=== PATIENT | male | born 1960 | race Caucasian/White ===

== ENCOUNTER 2018-11-14 04:30 | Inpatient (IN) | payer OTHER ==
[~2018-11-14] VITALS: Ht 165.1 cm; Wt 68.0 kg
[2018-11-14 04:35] VITALS: BP 113/66
--- NOTE | 2018-11-14 04:37 | NUR ---
FIRST CONTACT WITH PATIENT BIBA FOR ETOH IN PUBLIC. PATIENT WAS FOUND, OUTSIDE A STRANGERS HOME. PATIENT APPARENTLY RANG THE DOOR CACERES AND REQUESTED FOR HELP. PATIENT GCS 15, THOUGH SLOW TO RESPOND. PATIENT DOES STATE HE DRANK ETOH TODAY, DENIES ANY SI/HI. PATIENT STATES HX OF LIVER CIRRHOSIS. IV EST BY EMS 16G TO R UPPER ARM, C/D/P. PATIENT DENIES ANY N/V/D, NO SOB/CP AT THIS TIME. PATIENT HR 82 BPM ON CM, NO ECTOPY NOTED. PATIENT BREATHING IS EVEN AND UNLABORED, EQUAL RISE AND FALL OF CHEST. BED IN LOWEST POSITION SIDE RAILS UP X 2 FOR SAFETY, NO ACUTE DISTRESS NOTED, WILL CONTINUE TO MONITOR
[2018-11-14] MEDS ORDERED: MULTIVITAMIN-12 10 ML in NACL 0.9% 1,000 ML IV ONE (04:53)
--- NOTE | 2018-11-14 04:53 | NUR ---
DR. DIMAS BEDSIDE EVALUATING PT
[2018-11-14] MEDS ORDERED: FOLIC ACID 5 MG/ML SYR IM ONE (04:55)
[2018-11-14] MEDS ORDERED: MAG SULF 2000 MG/WATER PREMIX 50 ML IV ONE (04:55)
[2018-11-14] MEDS ORDERED: THIAMINE 200 MG/2 ML VIAL IM ONE (04:55)
[2018-11-14] MEDS ORDERED: MULTIVITAMIN-12 10 ML VIAL IV ONE (05:11)
--- NOTE | 2018-11-14 06:11 | NUR ---
PT TAKEN TO CT [facility]IA [facility]
[2018-11-14 06:28] LABS: ALBUMIN 2.9 g/dL (3.4-5.0); ANION GAP 10.9 (8-16); CARBON DIOXIDE 24.3 mmol/L (21-32); CREATININE 1.1 mg/dL (0.7-1.3); POTASSIUM 3.2 mmol/L (3.5-5.1)
--- NOTE | 2018-11-14 06:29 | NUR ---
PT RETURNED FROM [facility]IA [facility]
--- NOTE | 2018-11-14 06:39 | NUR ---
PATIENT CURRENTLY RESTING IN [facility] IN POSITION OF COMFORT. PATIENT AROUSABLE VIA TOUCH. PATIENT GCS 15, SLOW TO RESPOND AND DROWSY. PATIENT BREATHING IS EVEN AND UNLABORED, EQUAL RISE AND FALL OF CHEST. PATIENT UPDATED WITH PLAN OF CARE, NO ACUTE DISTRESS NOTED, WILL CONTINUE TO MONITOR
--- NOTE | 2018-11-14 07:13 | NUR ---
RECEIVED REPORT FROM SAIDA WING FOR TRANSFER OF CARE.
[2018-11-14 07:15] LABS: TOTAL BILIRUBIN 3.6 mg/dL (0.0-1.0)
[2018-11-14 07:17] LABS: BASOPHILS % (AUTO) 0.8 % (0.0-2.0); EOSINOPHILS # (AUTO) 0.2 K/uL (0-0.4); EOSINOPHILS % (AUTO) 5.3 % (0.0-4.0); HEMATOCRIT 28.2 % (36-52); LYMPHOCYTES # (AUTO) 0.5 K/uL (2.0-11.5); LYMPHOCYTES % (AUTO) 15.6 % (20.5-51.1); MEAN CORPUSCULAR HEMOGLOBIN 32 pg (27-31); MEAN CORPUSCULAR HGB CONC 35 g/dL (33-37); MEAN CORPUSCULAR VOLUME 89.4 fL (80-94); MONOCYTES # (AUTO) 0.4 K/uL (0.8-1.0); MONOCYTES % (AUTO) 13.8 % (1.7-9.3); NEUTROPHILS # (AUTO) 1.9 K/uL (1.8-7.7); NEUTROPHILS % (AUTO) 64.5 % (42.2-75.2); RED BLOOD CELL COUNT(AUTO) 3.16 MIL/uL (4.20-6.10); RED CELL DISTRIBUTION WIDTH 15.8 % (11.6-13.7)
--- NOTE | 2018-11-14 07:17 | NUR ---
CRITICAL LAB REPORT RECEIVED FROM EVERT FROM LAB. TROPONIN: [id number]. NOTIFIED DR. LIND.
--- NOTE | 2018-11-14 07:30 | NUR ---
PT ASLEEP. EASILY AROUSABLE BY TOUCH. RESPONDS APPROPRIATELY. VSS. NO SIGNS AND SYMPTOMS OF DISTRESS NOTED. WILL CONTINUE TO MONITOR.
[2018-11-14 07:33] LABS: PLATELET COUNT (AUTO) 48 K/uL (140-450)
--- NOTE | 2018-11-14 07:36 | NUR ---
DR LIND AT BEDSIDE FOR PT EVAL
[2018-11-14 07:43] LABS: BILIRUBIN,URINE NEGATIVE (NEGATIVE); BLOOD, URINE 2+ (NEGATIVE); COLOR,URINE YELLOW (YELLOW); LEUKOCYTE ESTERASE ,URINE NEGATIVE (NEGATIVE); NITRITE, URINE NEGATIVE (NEGATIVE); PH,URINE 6.5 (5.0-9.0); UGLUCOSE NEGATIVE (NEGATIVE)
[2018-11-14 07:47] LABS: BARBITURATE, URINE NEG. ng/ml (NEG <=200); BENZODIAZEPINE, URINE NEG. ng/mL (NEG <=200); CANNABINOID, URINE NEG. ng/mL (NEG <=50); COCAINE, URINE NEG. ng/mL (NEG <=300); OPIATE, URINE NEG. ng/mL (NEG <=2000); PHENCYCLIDINE SCREEN,URINE NEG. ng/mL (NEG <=25)
[2018-11-14] MEDS ORDERED: LACTULOSE 20 GM/30 ML UDC PO ONE ×2 (07:50→08:10)
[2018-11-14] MEDS ORDERED: PIPERACILLIN/TAZOBACTAM 3.375 GM in DEXTROSE 5% 50 ML IV ONE ×2 (07:50→08:10)
[2018-11-14] MEDS ORDERED: VANCOMYCIN 1,000 MG in DEXTROSE 5% 250 ML IV ONE ×2 (07:50→08:10)
[2018-11-14] MEDS ORDERED: NACL 0.9% 1,000 ML IV ONE ×2 (07:50→08:10)
[2018-11-14 07:58] LABS: PROTHROMBIN TIME 13.3 secs (10.8-13.4)
[2018-11-14 07:59] LABS: LIPASE 212 U/L (73-393); MAGNESIUM 2.4 mg/dL (1.8-2.4)
[2018-11-14 08:00] LABS: ACETAMINOPHEN < 0.5 ug/ml (10-30); SALICYLATE < 2.8 mg/dL (2.8-20.0)
[2018-11-14 08:04] LABS: RBC,URINE 11-20 (MOD) /HPF (0-5)
[2018-11-14 08:05] LABS: WBC,URINE 0-5 /HPF (0-5)
[2018-11-14 08:06] LABS: APPEARANCE,URINE SLIGHTLY HAZY (CLEAR)
[2018-11-14] MEDS ORDERED: PIPERACILLIN/TAZOBACTAM 3.375 GM VIAL IV ONE (08:26)
[2018-11-14] MEDS ORDERED: VANCOMYCIN 1,000 MG VIAL ONE (08:26)
--- NOTE | 2018-11-14 08:36 | NUR ---
PT ASLEEP. EASILY AROUSABLE BY TOUCH AND VOICE. FULL CLEAR SPEECH. VSS. WILL CONTINUE TO MONITOR.
[2018-11-14 09:12] LABS: ACETONE, SERUM NEGATIVE (NEGATIVE)
--- NOTE | 2018-11-14 09:35 | NUR ---
PT IS MUCH MORE AWAKE AT THIS TIME. VSS. FULL CLEAR SPEECH.
--- NOTE | 2018-11-14 09:45 | NUR ---
RECEIVED REPORT FROM ED NURSE. PT LETHARGIC, AROUSABLE TO NAME, TRANSFERRED TO UNIT VIA GURNEY. PT ABLE TO REPOSITION SELF IN BED. AOX4, REQUIRES REMINDERS. BILATERAL RADIAL PULSES 61, EVEN AND REGULAR. IV ON RT UPPER ARM 16 GA AND RT HAND 18 GA RUNNING IVF PER ORDER, DRESSING CLEAN, DRY AND INTACT. RESPIRATIONS EVEN AND UNLABORED ON RA. ABDOMEN IS SOFT AND DISTENDED, LBM UNABLE TO RECALL. PT IS JAUNDICED, YELLOWING OF THE SKIN AND EYES. SKIN IS INTACT, WARM TO TOUCH. NO EDEMA NOTED TO EXTREMITIES. PT GAVE CONTACT NUMBERS OF SISTER NEERAJ PIÑA AND MARGARETTE . PT VERBALIZED THAT WE ARE ABLE TO SHARED PT INFORMATION WITH SISTERS. GIVEN AND EXPLAINED POC WITH PT, PT VERBALIZED UNDERSTANDING. PT PLACE ON FALL PRECAUTIONS, GIVEN YELLOW GOWN, YELLOW ARM BAND, YELLOW SOCKS, AND POSTED YELLOW SIGN ON DOOR. SAFETY MEASURES IN PLACE, BED ON LOW POSITION, BED ALARMS ON. WILL CONTINUE TO MONITOR.
--- NOTE | 2018-11-14 09:45 | NUR ---
Patient will be admitted to care of Dr Sheridan. Admited to Tele. Will go to room 126 B. Belongings list completed. Report to SAIDA Martinez and SAIDA Fonseca.
--- NOTE | 2018-11-14 10:00 | NUR ---
ATTEMPTED TO CONTACT SISTERS, LINE WAS BUSY. WILL TRY AT A LATER TIME.
--- NOTE | 2018-11-14 11:15 | NUR ---
SECOND ATTEMPT TO CONTACT SISTERS WELL BROTHER MANNY AT BUT LINES WERE BUSY. WILL TRY AGAIN AT A LATER TIME.
--- NOTE | 2018-11-14 11:24 | NUR ---
RECEIVED CALL FROM DR. VALDES. REPORTED LABS, ORDERS GIVEN, NOTED AND CARRIED OUT BY RN.
[2018-11-14] MEDS ORDERED: KCL 20 MEQ/WATER INJ PREMIX 200 ML IV ONE (11:25)
[2018-11-14] MEDS ORDERED: ONDANSETRON 4 MG TAB PO PRN (11:25)
[2018-11-14 12:00] VITALS: BP 116/59
[2018-11-14] MEDS ORDERED: POTASSIUM CHLORIDE 10 MEQ TABER PO SCH (12:00)
[2018-11-14] MEDS: PROPRANOLOL 20 MG TAB PO SCH ×2 (13:49→18:07)
[2018-11-14] MEDS ORDERED: ACETAMINOPHEN 325 MG TAB PO PRN (13:55)
[2018-11-14] MEDS: LACTULOSE 20 GM/30 ML UDC PO SCH ×2 (13:55→18:06)
[2018-11-14] MEDS ORDERED: ACETAMINOPHEN 325 MG TAB ONE (14:06)
[2018-11-14 16:00] VITALS: BP 119/60
[2018-11-14] MEDS ORDERED: LORazepam 2 MG/ML VIAL IVP PRN (16:05)
--- NOTE | 2018-11-14 19:20 | NUR ---
ENDORSED PT TO REAL PROPERTY EVALUATOR NURSE. NO SIGNS OF DISTRESS AND NO C/O PAIN AT THIS TIME.
--- NOTE | 2018-11-14 19:21 | NUR ---
RECEIVED REPORT FROM AM NURSE. PT AWAKE, ALERT AND ORIENTED, PLAYING ON PHONE. PT RIGHT A/C 16 G INTACT AND INFUSING WELL. PT RIGHT HAND 18 S/L. PT ON FALL PRECAUTIONS, BED IN LOW POSITION AND BED ALARM ON. URINAL AT BEDSIDE. CALL LIGHT WITHIN REACH. PT INSTRUCTED TO CALL FOR HELP WHEN GOING TO THE BATHROOM. WILL CONTINUE TO MONITOR.
[2018-11-14 20:10] VITALS: BP 100/55
[2018-11-14] MEDS: POTASSIUM CHLORIDE 10 MEQ TABER PO SCH (20:55)
--- NOTE | 2018-11-14 20:55 | NUR ---
PT GIVEN K-DUR 40MEQ PO. PT TOLERATED WELL. PT STATED THAT HE'S SLEEPY. ORIENTED PT HAS TO TURN OFF LIGHTS USING REMOTE.
[2018-11-15 00:05] VITALS: BP 107/54
[2018-11-15] MEDS: LACTULOSE 20 GM/30 ML UDC PO SCH ×3 (00:27→12:06)
--- NOTE | 2018-11-15 00:27 | NUR ---
LACTULOSE GIVEN. PT TOLERATED WELL. PT RIGHT HAND IV PULLED OUT ACCIDENTLY DURING SLEEP. RIGHT HAND IV D/C AT THIS TIME. CANNULA INTACT.
--- NOTE | 2018-11-15 02:08 | NUR ---
ROUNDED ON PT. PT SLEEPING, NO VISIBLE SIGNS OF DISTRESS. URINAL AT BEDSIDE. CALL LIGHT WITH IN REACH.
[2018-11-15 04:03] VITALS: BP 103/50
--- NOTE | 2018-11-15 04:15 | NUR ---
PT BED ALARMED. PT STATED THAT HE NEEDED TO URINATE. ASSISTED PT TO BATHROOM. GAIT STEADY WHEN AMBULATING.
[2018-11-15 06:47] LABS: ALBUMIN 2.6 g/dL (3.4-5.0); ANION GAP 12.9 (8-16); CARBON DIOXIDE 23.7 mmol/L (21-32); CREATININE 1.1 mg/dL (0.7-1.3); POTASSIUM 3.6 mmol/L (3.5-5.1); TOTAL BILIRUBIN 2.7 mg/dL (0.0-1.0)
--- NOTE | 2018-11-15 07:20 | NUR ---
RECEIVED BEDSIDE REPORT FROM NIGHT NURSE. PT IS RESTING IN BED EASILY AROUSABLE TO NAME, AOX4 WITH NO OBVIOUS CONFUSION AT THIS TIME. PT ABLE TO COMMUNICATE CLEARLY WITH ME AND STATE WHERE HE IS AND ANSWER QUESTIONS. PT HAS A RIGHT ANTECUBITAL IV THAT IS SALINE LOCKED ASYMPTOMATIC AND PATENT. ALL SAFETY MEASURES IN PLACE WITH CALL LIGHT WITHIN REACH.
[2018-11-15 07:36] LABS: HEMATOCRIT 29.1 % (36-52); MEAN CORPUSCULAR HEMOGLOBIN 31 pg (27-31); MEAN CORPUSCULAR HGB CONC 35 g/dL (33-37); MEAN CORPUSCULAR VOLUME 90.8 fL (80-94); RED CELL DISTRIBUTION WIDTH 16.1 % (11.6-13.7); WHITE BLOOD COUNT (AUTO) 2.5 K/uL (4.8-10.8)
[2018-11-15 08:00] VITALS: BP 116/55
[2018-11-15 08:57] LABS: PLATELET COUNT (AUTO) 45 K/uL (140-450)
[2018-11-15 08:58] LABS: EOSINOPHILS % (MANUAL) 9 % (0-4); LYMPHOCYTES % (MANUAL) 43 % (20-46); MONOCYTES % (MANUAL) 3 % (5-12)
[2018-11-15] MEDS ORDERED: FOLIC ACID 1 MG TAB PO SCH (09:00)
[2018-11-15] MEDS ORDERED: MULTIVITAMIN 1 TAB PO SCH (09:00)
[2018-11-15] MEDS ORDERED: THIAMINE 100 MG TAB PO SCH (09:00)
--- NOTE | 2018-11-15 09:00 | NUR ---
PT RESTING IN BED NO REQUESTS NO SIGNS OF DISTRESS.
[2018-11-15] MEDS: PROPRANOLOL 20 MG TAB PO SCH ×2 (09:12→12:06)
[2018-11-15] MEDS: POTASSIUM CHLORIDE 10 MEQ TABER PO SCH (09:13)
[2018-11-15] MEDS ORDERED: LACT10SO11 PO (10:20)
--- NOTE | 2018-11-15 10:55 | NUR ---
SPOKE WITH PATIENT SISTER NEERAJ URIOSTEGUI REGARDING PT CONDITION PER PT REQUEST FOR ME TO TALK TO HIS SISTER AND TALK TO HER ABOUT DISCHARGE AND PICKING HIM UP. SHE STATES THAT SHE WILL PICK HIM UP AT 1400. HER CELL PHONE IS [phone] OR HER HOUSE IS [phone]. PT HAS NO OTHER REQUESTS AND NO SIGNS OBVIOUS DISTRESS.
[2018-11-15 12:00] VITALS: BP 107/55
--- NOTE | 2018-11-15 12:08 | NUR ---
ADMINISTERED MEDICATIONS PT HAS NO DISTRESS OR REQUESTS .
--- NOTE | 2018-11-15 13:30 | NUR ---
WENT OVER DISCHARGE INSTRUCTIONS WITH PT AND HAD HIM SIGN THEM PT HAS NO QUESTIONS AND NO DISTRESS.
--- NOTE | 2018-11-15 14:16 | NUR ---
PT SITTING UP IN BED BREATHING UNLABORED. PT TRANSPORT HAS NOT ARRIVED YET.
--- NOTE | 2018-11-15 14:41 | NUR ---
REVIEWED PT DISCHARGE PAPERWORK WITH SISTER NEERAJ URIOSTEGUI PER PT REQUEST. REMOVED IV CATHETER INTACT, GAUZE AND BANDAID APPLIED. ID BANDS REMOVED AND DISPOSED OF IN SHREDDER. PRESCRIPTION AND ALL BELONGINGS WITH PT. PT REFUSED WHEELCHAIR, WALKED WITH PT AND SISTER TO FRONT OF HOSPITAL.
--- NOTE | 2018-11-18 10:16 | NUR ---
JUSTYNA called patient's PCP office [phone] to schedule follow up appointment with Dr. Kyara Sorensen. JUSTYNA scheduled appointment for 12/03/2018 at 8:30AM at [address] [place] [address]. JUSTYNA called patient's home phone number [phone]. Patient's home phone number was disconnected. JUSTYNA called other phone number [phone] and left voicemail requesting call back. JUSTYNA will follow up as needed.
== END 2018-11-15 14:41 | disposition home or self-care (01) | DRG 279 ==
LOC: MED 04:30 → MMU 09:29
PROVIDERS: ADMIT Internal Medicine Pulmonary Disease; ATTEND Internal Medicine Pulmonary Disease
DX: K72.90 Hepatic failure, unspecified without coma (principal); I42.9 Cardiomyopathy, unspecified; F10.10 Alcohol abuse, uncomplicated; F15.90 Other stimulant use, unspecified, uncomplicated; K70.30 Alcoholic cirrhosis of liver without ascites
CPT/HCPCS: 36415; 36600; 70450; 71045; 80053; 80305; 81001; 82009; 82140; 82803; 82948; 83605; 83690; 83735; 83880; 84484; 85025; 85610; 85730; 87040; 87081; 93005; 96365; 96368; 96372; 99291; A9153; G0480; G0482; J2543; J3370; J3411; J3475; J3490; J7030; Q0092